=== PATIENT | male | born 1995 | race Caucasian/White ===

== ENCOUNTER 2017-10-10 16:39 | Emergency (ER) | payer OTHER ==
[~2017-10-10] VITALS: Ht 198.1 cm; Wt 108.9 kg
[~2017-10-10 16:39] MED LIST: CODACE60 PO; CYCL10 PO; LAMO25; Naprosyn500 MG PO; Norco 5-325 Ta1 EACH PO; RXHYDACE PO
[2017-10-10] MEDS ORDERED: Permethrin60 GM TOP (16:57)
[2018-07-04] MEDS ORDERED: Mupirocin22 GM TOP (11:38)
== END 2017-10-10 18:20 | disposition home or self-care (01) ==
LOC: ER 16:39
DX: S91.342A Puncture wound with foreign body, left foot, initial encounter (principal); G40.909 Epilepsy, unspecified, not intractable, without status epilepticus; F32.9 Major depressive disorder, single episode, unspecified; Z79.899 Other long term (current) drug therapy; W45.0XXA Nail entering through skin, initial encounter
CPT/HCPCS: 28190; 73630; 90471; 90714; 99283

== ENCOUNTER 2017-10-24 18:02 | Emergency (ER) | payer OTHER ==
[~2017-10-24] VITALS: Ht 198.1 cm; Wt 108.9 kg
[~2017-10-24 18:02] MED LIST changes: +Permethrin60 GM TOP
[2018-07-04] MEDS ORDERED: Mupirocin22 GM TOP (11:38)
== END 2017-10-24 18:58 | disposition home or self-care (01) ==
LOC: ER 18:02
DX: S80.01XA Contusion of right knee, initial encounter (principal); G40.909 Epilepsy, unspecified, not intractable, without status epilepticus; F32.9 Major depressive disorder, single episode, unspecified; F17.200 Nicotine dependence, unspecified, uncomplicated; W10.9XXA Fall (on) (from) unspecified stairs and steps, initial encounter
CPT/HCPCS: 73564; 99283

== ENCOUNTER 2018-08-26 16:30 | Emergency (ER) | payer OTHER ==
[~2018-08-26] VITALS: Ht 198.1 cm; Wt 106.6 kg
[~2018-08-26 16:30] MED LIST changes: +Mupirocin22 GM TOP
[2018-08-26] MEDS ORDERED: ONDA4ODT MM (16:52)
== END 2018-08-26 16:56 | disposition home or self-care (01) ==
LOC: ER 16:30
DX: R11.2 Nausea with vomiting, unspecified (principal); R19.7 Diarrhea, unspecified; Z87.891 Personal history of nicotine dependence
CPT/HCPCS: 99283

== ENCOUNTER 2018-09-07 20:14 | Emergency (ER) | payer OTHER ==
[~2018-09-07] VITALS: Ht 198.1 cm; Wt 107.0 kg
[~2018-09-07 20:14] MED LIST changes: +ONDA4ODT MM
[2018-09-07] MEDS ORDERED: CYCL10 PO (22:08)
[2018-09-07] MEDS ORDERED: Naprosyn500 MG PO (22:08)
== END 2018-09-07 22:26 | disposition home or self-care (01) ==
LOC: ER 20:14
DX: S39.012A Strain of muscle, fascia and tendon of lower back, initial encounter (principal); Z87.891 Personal history of nicotine dependence; X50.0XXA Overexertion from strenuous movement or load, initial encounter; Y99.0 Civilian activity done for income or pay
CPT/HCPCS: 99283

== ENCOUNTER 2018-11-21 10:01 | Emergency (ER) | payer OTHER ==
[~2018-11-21] VITALS: Ht 193 cm; Wt 97.5 kg
[2018-11-21] MEDS ORDERED: Robaxin500 MG PO (10:31)
[2018-11-21] MEDS ORDERED: Mupirocin22 GM TOP (10:31)
[2018-11-21] MEDS ORDERED: PRED10 PO (10:31)
[2018-11-21] MEDS ORDERED: NAPR550 PO (10:32)
== END 2018-11-21 11:00 | disposition home or self-care (01) ==
LOC: ER 10:01
DX: T63.441A Toxic effect of venom of bees, accidental (unintentional), initial encounter (principal); M54.17 Radiculopathy, lumbosacral region; F32.9 Major depressive disorder, single episode, unspecified; G40.909 Epilepsy, unspecified, not intractable, without status epilepticus; F17.200 Nicotine dependence, unspecified, uncomplicated
CPT/HCPCS: 99283

== ENCOUNTER 2018-12-06 21:36 | Emergency (ER) | payer OTHER ==
[~2018-12-06] VITALS: Ht 198.1 cm; Wt 102.1 kg
[~2018-12-06 21:36] MED LIST changes: +NAPR550 PO; +PRED10 PO; +Robaxin500 MG PO
[2018-12-06] MEDS ORDERED: Prednisone20 MG PO (23:43)
[2018-12-06] MEDS ORDERED: CYCL10 PO (23:43)
[2018-12-06] MEDS ORDERED: IBUP800 PO (23:43)
== END 2018-12-06 23:55 | disposition home or self-care (01) ==
LOC: ER 21:36
DX: G89.29 Other chronic pain (principal); M54.41 Lumbago with sciatica, right side
CPT/HCPCS: 96372; 99283-25; J1100

== ENCOUNTER 2019-05-19 20:58 | Emergency (ER) | payer OTHER ==
[~2019-05-19] VITALS: Ht 198.1 cm; Wt 104.3 kg
[~2019-05-19 20:58] MED LIST changes: +IBUP800 PO; +Prednisone20 MG PO
== END 2019-05-19 22:26 | disposition home or self-care (01) ==
LOC: ER 20:58
DX: S01.511A Laceration without foreign body of lip, initial encounter (principal); F17.210 Nicotine dependence, cigarettes, uncomplicated; Z79.899 Other long term (current) drug therapy; Z79.52 Long term (current) use of systemic steroids; W50.0XXA Accidental hit or strike by another person, initial encounter; Y93.71 Activity, boxing
CPT/HCPCS: 99282

== ENCOUNTER 2024-11-11 19:17 | Emergency (ER) | payer OTHER ==
[~2024-11-11] VITALS: Ht 198.1 cm; Wt 102.1 kg
[2024-11-11 20:14] LABS: BASOPHILS ABSOLUTE AUTO 0.04 K/mm3 (0.00-0.23); BASOPHILS PERCENT AUTO 1 % (0-2); EOSINOPHILS ABSOLUTE AUTO 0.06 K/mm3 (0.00-0.68); EOSINOPHILS PERCENT AUTO 1 % (0-6); Hematocrit 40.9 % (37.0-53.0); Hemoglobin 14.2 g/dL (13.5-17.5); IMMATURE GRAN ABSOLUTE AUTO 0.01 K/mm3 (0.00-0.10); IMMATURE GRAN PERCENT AUTO 0 % (0-1); LYMPHOCYTES ABSOLUTE AUTO 2.76 K/mm3 (0.84-5.20); LYMPHOCYTES PERCENT AUTO 52 % (21-46); MONOCYTES ABSOLUTE AUTO 0.42 K/mm3 (0.16-1.47); MONOCYTES PERCENT AUTO 8 % (4-13); Mean Corpuscular HGB 30.6 pg (26.0-34.0); Mean Corpuscular HGB Conc 34.7 g/dL (31.5-36.5); Mean Corpuscular Volume 88 fL (80-100); Mean Platelet Volume 9.2 fL (9.1-12.4); NEUTROPHILS ABSOLUTE AUTO 2.06 K/mm3 (1.96-9.15); NEUTROPHILS PERCENT AUTO 39 % (41-73); Platelet Count 313 K/mm3 (150-400); RDW Coefficient Variation 13.3 % (11.7-14.2); RDW Standard Deviation 43.1 fL (35.1-46.3); Red Blood Cell Count 4.64 M/mm3 (4.30-5.90); White Blood Cell Count 5.35 K/mm3 (4.00-11.30)
[2024-11-11 20:22] LABS: Bun/Creatinine Ratio 10.5 (12.0-20.0); Calcium, Blood 8.7 mg/dL (8.5-10.1); Creatinine, Blood 0.86 mg/dL (0.60-1.20); Potassium, Blood 3.7 mmol/L (3.5-5.5)
[2024-11-11 21:08] VITALS: BP 146/98
== END 2024-11-11 21:06 | disposition home or self-care (01) ==
LOC: ER 19:17
PROVIDERS: Student in an Organized Health Care Education/Training Program
DX: G40.909 Epilepsy, unspecified, not intractable, without status epilepticus (principal); F17.210 Nicotine dependence, cigarettes, uncomplicated
CPT/HCPCS: 70450; 71045; 80048; 85025; 93005; 93010; 99285-25